=== PATIENT | female | born 1985 | race Caucasian/White ===

== ENCOUNTER 2020-03-27 22:27 | Emergency (ER) | payer OTHER ==
[~2020-03-27] VITALS: Ht 175.3 cm; Wt 56.0 kg
[2020-03-28] MEDS ORDERED: VOLTAREN75 MG PO (02:17)
[2020-03-28 04:00] VITALS: BP 120/62
== END 2020-03-28 04:00 | disposition home or self-care (01) | DRG 605 ==
LOC: ED 22:27
DX: S20.211A Contusion of right front wall of thorax, initial encounter (principal); V49.50XA Passenger injured in collision with unspecified motor vehicles in traffic accident, initial encounter